=== PATIENT | female | born 1970 | race Caucasian/White ===

== ENCOUNTER → 2017-08-10 | Outpatient (CLI) | payer BC ==
--- NOTE | 2017-08-10 11:11 | RAD ---
EXAM: CHEST 2 VIEWS History: Chest congestion, pneumonia COMPARISON: 10/29/2008 TECHNIQUE: PA and lateral chest radiographs FINDINGS: The cardiomediastinal silhouette is within normal limits. The lungs are clear bilaterally. The costophrenic sulci are clear and well demarcated bilaterally. IMPRESSION: No radiographic evidence of an acute cardiopulmonary abnormality.
== END | disposition home or self-care (01) ==
LOC: DXRAD 10:42
PROVIDERS: ATTEND Specialist
DX: J18.8 Other pneumonia, unspecified organism (principal)
CPT/HCPCS: 71046

== ENCOUNTER → 2020-02-03 | Outpatient (CLI) | payer BC ==
[~2020-02-03] MED LIST: IOHEXOL 240 MG/ML 50ML VIAL. ONE; IOHEXOL 240 MG/ML 50ML VIAL. PO ONE; IOHEXOL 300 MG/ML 75 ML VIAL. IV ONE
--- NOTE | 2020-02-03 13:31 | RAD ---
CT ABDOMEN PELVIS WO/W dated 02/03/2020 12:00 AM Indication:Pain.Reason: LLQ PAIN, HX OF DIVERTICULTIS / Spl. Instructions: / History: . Comparison: 06/25/2016 Technique: Contiguous axial imaging of the abdomen pelvis performed with and without the administration of 75 cc Isovue-370. One or more of the following individualized dose reduction techniques were utilized for this examination: 1. Automated exposure control 2. Adjustment of the mA and/or kV according to patient size 3. Use of iterative reconstruction technique Findings: Limited images of lung bases are clear. Heart size within normal limits. No pleural or pericardial effusion. Liver, spleen, pancreas, adrenal glands, gallbladder and kidneys are unremarkable. No hydronephrosis. Partially opacified GI tract normal in caliber and contour. Focal area of wall thickening involving the descending colon/sigmoid junction with hazy inflammatory stranding in the adjacent fat. There are scattered diverticula throughout. No localized perforation or abscess. No free fluid. Borderline enlarged aortocaval lymph node measuring 8 mm short axis. There are also a few nonpathologically enlarged mesenteric lymph nodes. Images of pelvis show nondistended urinary bladder. Heterogeneous nodular uterus consistent with fibroids. Small amount of free pelvic fluid. No pelvic lymphadenopathy. Bone windows show no acute findings. Mild lower lumbar spondylosis. IMPRESSION: 1. Findings consistent with acute diverticulitis involving the descending colon/sigmoid junction. No localized perforation or abscess at this time. 2. Small amount of free pelvic fluid, nonspecific. 3. Fibroid uterus. Electronically signed by: Jasmeet Murphy MD (02/03/2020 1:29 PM) [facility]
== END | disposition home or self-care (01) ==
LOC: CT 11:14
PROVIDERS: ATTEND Physician Assistant
DX: K57.32 Diverticulitis of large intestine without perforation or abscess without bleeding (principal); D25.9 Leiomyoma of uterus, unspecified; M47.816 Spondylosis without myelopathy or radiculopathy, lumbar region
CPT/HCPCS: 74178; Q9966; Q9967

== ENCOUNTER → 2020-03-17 | Outpatient (CLI) | payer BC ==
[~2020-03-17] MED LIST changes: -IOHEXOL 240 MG/ML 50ML VIAL. PO ONE
--- NOTE | 2020-03-17 13:16 | RAD ---
EXAM: CT Abdomen and Pelvis with IV contrast CLINICAL HISTORY: LLQ ABDOMEN PAIN, LEFT FLANK PAIN, HX DIVERTICULITIS / Spl. Instructions: SCANNED W/O AT 945 AM - STARTED DRINKING @ 0950 COMPARISON: 06/25/2016 02/03/2020 TECHNIQUE: Helical CT of the abdomen and pelvis was performed following the administration of IV contrast. Axial, coronal and sagittal reformatted images were generated. ---PQRS compliance statement - One or more of the following individualized dose reduction techniques were utilized for this study: 1. Automated exposure control 2. Adjustment of the mA and/or kV according to patient size 3. Use of iterative reconstruction technique--- FINDINGS: Lower chest: Lung bases are clear. Abdomen and pelvis: Liver and biliary system: No focal liver lesion. Gallbladder is normal. No biliary ductal dilatation. Spleen: Unremarkable Pancreas: Unremarkable Adrenal glands: Unremarkable Kidneys: Symmetric nephrograms. No focal renal lesion. No hydronephrosis. No hydroureter. Lymph nodes/retroperitoneum: A few mildly prominent retroperitoneal lymph nodes and iliac chain lymph nodes as well as mesenteric lymph nodes are seen, likely reactive. Vessels: Aorta is normal in caliber Bowel/Peritoneal cavity: Appendix is normal. Moderate colonic stool content is seen. There is infiltration about several distal descending and proximal sigmoid colonic diverticula consistent with acute diverticulitis. No discrete associated loculated fluid collection is seen. No free peritoneal gas. No abdominal or pelvic ascites. Heterogeneous appearance of the uterus likely uterine fibroids. Abdominal wall: Unremarkable Bladder: Unremarkable Bones: Osseous structures are grossly stable. IMPRESSION: 1. Acute diverticulitis of the distal descending and proximal sigmoid colon without associated loculated fluid collection, evidence for perforation or free intraperitoneal gas. Additionally, consider further evaluation with colonoscopy following resolution of the acute process to exclude underlying mass if not previously performed. Electronically signed by: Beto Rod MD (03/17/2020 1:13 PM) [facility]
== END | disposition home or self-care (01) ==
LOC: CT 09:29
PROVIDERS: ATTEND Physician Assistant
DX: K57.32 Diverticulitis of large intestine without perforation or abscess without bleeding (principal); R10.9 Unspecified abdominal pain
CPT/HCPCS: 74178; Q9967